=== PATIENT | female | born 1965 | race Caucasian/White ===

== ENCOUNTER 2018-11-25 23:17 | Emergency (ER) | payer OTHER ==
[~2018-11-25] VITALS: Ht 162.6 cm; Wt 97.1 kg
[2018-11-25 23:20] VITALS: Ht 162.6 cm; Wt 97.1 kg
[2018-11-26 01:16] LABS: CHLORIDE SERUM 102 mmol/L (98-107); CREATININE SERUM 0.8 mg/dL (0.6-1.0); GFR1 > 60 mL/min; GLUCOSE SERUM 171 mg/dL (74-106); SODIUM SERUM 141 mmol/L (136-145)
[2018-11-26 01:20] LABS: ALBUMIN 3.8 g/dL (3.4-5.0); ALKALINE PHOSPHATASE 170 U/L (46-116); ALT/SGPT 16 U/L (14-59); AST/SGOT 5 U/L (15-37); BILIRUBIN TOTAL 0.41 mg/dL (0.20-1.00); PHOSPHOROUS 4.3 mg/dL (2.5-4.9)
[2018-11-26 02:01] VITALS: BP 131/67
== END 2018-11-26 02:01 | disposition home or self-care (01) ==
LOC: ED 23:17
PROVIDERS: Emergency Medicine
DX: M79.10 Myalgia, unspecified site (principal); E78.00 Pure hypercholesterolemia, unspecified; I10 Essential (primary) hypertension; E11.9 Type 2 diabetes mellitus without complications
CPT/HCPCS: 36415